=== PATIENT | female | born 1960 | race Caucasian/White ===

== ENCOUNTER → 2018-02-08 | Emergency (ER) | payer MEDICAID | END | disposition left against medical advice (07) | LOC: ER 02:46 | DX: M79.601 Pain in right arm (principal); Z53.21 Procedure and treatment not carried out due to patient leaving prior to being seen by health care provider ==

== ENCOUNTER 2023-01-20 10:00 | Emergency (ER) | payer SELFPAY ==
[~2023-01-20] VITALS: Ht 167.6 cm; Wt 127.3 kg
[2023-01-20 10:15] VITALS: PULSE 90; RESP 18; O2SAT 99
[2023-01-20] MEDS ORDERED: NEOMYCIN-BACITRACIN-POLYM UNITDOSE PKG TOP OINT TOP ONE (10:30)
[2023-01-20] MEDS ORDERED: MORPHINE SULFATE 4 MG/ML SYR/VIAL IV ONE (10:30)
[2023-01-20] MEDS ORDERED: ONDANSETRON HCL 4 MG/2 ML VIAL IV ONE (10:30)
[2023-01-20] MEDS ORDERED: LIDOCAINE 1% (LOCAL ANESTH.) PF 5ml SDV ID ONE (10:30)
[2023-01-20] MEDS ORDERED: LIDOCAINE 1% HCL (LOCAL ANESTH.) INJ 20ML MDV ONE (10:42)
[2023-01-20] MEDS ORDERED: ceFAZolin 2 GM/D5W100ml 100 ML IV ONE (11:45)
[2023-01-20 13:29] VITALS: BP 121/67; PULSE 84; RESP 12; O2SAT 98
[2023-01-20] MEDS ORDERED: HYDR-4902 PO (15:05)
[2023-01-20] MEDS ORDERED: CEPH500C PO (15:05)
== END 2023-01-20 15:33 | disposition home or self-care (01) ==
LOC: ER 10:00
DX: S81.811A Laceration without foreign body, right lower leg, initial encounter (principal); Z90.710 Acquired absence of both cervix and uterus; W01.0XXA Fall on same level from slipping, tripping and stumbling without subsequent striking against object, initial encounter; Y93.89 Activity, other specified; Y92.89 Other specified places as the place of occurrence of the external cause; Y99.8 Other external cause status
CPT/HCPCS: 12034; 73700; 96365; 96375; 99285; J2001; J2270; J2405

== ENCOUNTER 2023-02-03 04:20 | Emergency (ER) | payer SELFPAY ==
[~2023-02-03] VITALS: Ht 167.6 cm; Wt 135.6 kg
[~2023-02-03 04:20] MED LIST: CEPH500C PO; HYDR-4902 PO
[2023-02-03] MEDS ORDERED: cefTRIAXone SOD 1,000 MG VL IM ONE (06:45)
[2023-02-03] MEDS ORDERED: ACETAMINOPHEN 500 MG TAB PO ONE ×2 (06:45→06:57)
[2023-02-03] MEDS ORDERED: cefTRIAXone SOD 1,000 MG VL ONE (06:56)
[2023-02-03] MEDS ORDERED: ACET-1080 PO (06:59)
[2023-02-03] MEDS ORDERED: CEPH500C PO (06:59)
[2023-02-03 07:33] VITALS: BP 181/76; PULSE 104; RESP 20; TEMP 98.2; O2SAT 99
== END 2023-02-03 07:36 | disposition home or self-care (01) ==
LOC: ER 04:20
DX: S71.111D Laceration without foreign body, right thigh, subsequent encounter (principal); E66.01 Morbid (severe) obesity due to excess calories; Z68.42 Body mass index [BMI] 45.0-49.9, adult; Z90.710 Acquired absence of both cervix and uterus; Z79.899 Other long term (current) drug therapy; W26.8XXD Contact with other sharp object(s), not elsewhere classified, subsequent encounter
CPT/HCPCS: 96372; 99283; J0696